=== PATIENT | female | born 1955 | race Caucasian/White ===

== ENCOUNTER 2019-01-05 08:00 | Outpatient (CLI) | payer MEDICAID ==
[2016-02-28 12:40] VITALS: BMI 58.2
[~2019-01-05 08:00] MED LIST: ATIVAN0.5 MG PO; AUGMENTIN 875-11 TAB PO; CELEXA10 MG PO; DETROL LA2 MG PO; IMITREX50 MG PO; LIDODERM 5 %1 PATCH TRANSDERM; LIPITOR20 MG PO; NEURONTIN 300300 MG PO; NITROSTAT0.4 MG; NITROSTAT0.4 MG SL; PROVENTIL HFA6.7 GM INH; REQUIP1 MG PO; SYNTHROID125 MCG PO; ULTRAM50 MG PO; ZOFRAN ODT4 MG/UDTAB PO
== END 2019-01-05 23:59 | disposition home or self-care (01) ==
LOC: D.MAMMO 08:00
PROVIDERS: ATTEND Family Medicine
DX: Z12.31 Encounter for screening mammogram for malignant neoplasm of breast (principal)

== ENCOUNTER → 2019-04-15 12:44 | Outpatient (CLI) | payer MEDICAID ==
[2016-02-28 12:40] VITALS: BMI 58.2
== END | disposition home or self-care (01) ==
LOC: D.US 12:44
PROVIDERS: ATTEND Nurse Practitioner Family
DX: M79.605 Pain in left leg (principal)